=== PATIENT | female | born 1945 | race Caucasian/White ===

== ENCOUNTER 2018-03-30 08:04 | Outpatient (REF) | payer MEDICARE, BC, SELFPAY ==
[2018-03-30 13:10] LABS: HCT 40.6 % (36.0-46.0); HGB 13.4 g/dL (12.0-15.5); Mean Corpuscular Hemoglobin 29.8 pg (27.0-33.0); Mean Corpuscular Volume 90.2 fL (80-95); Mean Platelet Volume 13.2 fL (8.0-11.0); Platelet Count 192 x1000/uL (130-400); RBC Distribution Width 13.5 % (11.7-14.6); White Blood Cell Count 5.86 k/cumm (4.4-10.8)
[2018-03-30 13:36] LABS: ALT 39 U/L (12-78); AST 29 U/L (15-37); Albumin 3.7 g/dL (3.4-5.0); Alkaline Phosphatase 128 U/L (46-116); Anion Gap 8.7 mmol/L (3-11); BUN 20 mg/dL (7-18); Bilirubin, Total 0.6 mg/dL (0.2-1.0); CO2 28.3 mmol/L (21.0-32.0); CREATININE 0.98 mg/dL (0.55-1.02); Calcium 9.1 mg/dL (8.5-10.1); Chloride 105 mmol/L (98-107); Cholesterol 164 mg/dL (50-200); Estimated GFR 55.95 (mL/min/1.73m2); Glucose 102 mg/dL (70-100); HDL Cholesterol 65 mg/dL (40-60); LDL CHOLESTEROL 82 mg/dL (<100); Potassium 4.1 mmol/L (3.5-5.1); Sodium 142 mmol/L (136-145); Total Protein 6.7 g/dL (6.4-8.2); Triglyceride 83 mg/dL (30-150)
== END 2018-03-30 08:24 ==
LOC: NCHCN 08:04
PROVIDERS: Visit Provider Family Medicine
DX: I10 Essential (primary) hypertension (principal); E78.5 Hyperlipidemia, unspecified
CPT/HCPCS: 80053; 80061; 83721; 85027

== ENCOUNTER 2019-04-02 08:28 | Outpatient (REF) | payer MEDICARE, BC, SELFPAY ==
[2019-04-02 12:25] LABS: HCT 41.1 % (36.0-46.0); HGB 13.6 g/dL (12.0-15.5); Mean Corp. HGB Concentration 33.1 g/dL (32.0-36.0); Mean Corpuscular Hemoglobin 29.4 pg (27.0-33.0); Mean Corpuscular Volume 88.8 fL (80-95); Mean Platelet Volume 11.9 fL (8.0-11.0); Platelet Count 242 x1000/uL (130-400); RBC 4.63 m/cumm (4.00-5.20); RBC Distribution Width 13.1 % (11.7-14.6); White Blood Cell Count 9.91 k/cumm (4.4-10.8)
[2019-04-02 12:33] LABS: ALT 39 U/L (14-59); AST 26 U/L (15-37); Albumin 3.5 g/dL (3.4-5.0); Alkaline Phosphatase 136 U/L (46-116); Anion Gap 9.5 mmol/L (3-11); BUN 11 mg/dL (7-18); CO2 27.5 mmol/L (21.0-32.0); CREATININE 0.84 mg/dL (0.55-1.02); Calcium 8.8 mg/dL (8.5-10.1); Calculated LDL 73 mg/dL; Chloride 104 mmol/L (98-107); Cholesterol 151 mg/dL (50-200); Glucose 104 mg/dL (70-100); HDL Cholesterol 61 mg/dL (40-60); Potassium 3.9 mmol/L (3.5-5.1); Sodium 141 mmol/L (136-145); Total Protein 6.9 g/dL (6.4-8.2); Triglyceride 86 mg/dL (30-150)
== END 2019-04-02 08:48 ==
LOC: NCHCN 08:28
PROVIDERS: PCP Family Medicine; Visit Provider Family Medicine
DX: I10 Essential (primary) hypertension (principal); E78.5 Hyperlipidemia, unspecified; R73.02 Impaired glucose tolerance (oral); R31.29 Other microscopic hematuria; M85.80 Other specified disorders of bone density and structure, unspecified site; I25.10 Atherosclerotic heart disease of native coronary artery without angina pectoris
CPT/HCPCS: 80053; 80061; 85027

== ENCOUNTER 2019-10-25 13:39 | Outpatient (REF) | payer MEDICARE, BC, SELFPAY ==
[2019-10-26 17:43] LABS: COVID-19 RT-PCR Result NEGATIVE (Negative)
== END 2019-10-25 13:59 ==
LOC: NCHCN 13:39
PROVIDERS: PCP Family Medicine; Visit Provider Nurse Practitioner Family
DX: Z03.818 Encounter for observation for suspected exposure to other biological agents ruled out (principal)
CPT/HCPCS: U0003

== ENCOUNTER 2019-11-30 11:03 | Outpatient (CLI) | payer MEDICARE, BC, SELFPAY ==
[2019-11-30 22:37] LABS: COVID-19 RT-PCR UVMMC Result Negative (Negative)
== END 2019-11-30 11:23 ==
PROVIDERS: PCP Family Medicine; Visit Provider Family Medicine
DX: Z03.818 Encounter for observation for suspected exposure to other biological agents ruled out (principal)
CPT/HCPCS: U0003

== ENCOUNTER 2019-12-03 04:09 | Outpatient (CLI) | payer MEDICARE, BC, SELFPAY ==
--- NOTE | 2019-12-10 08:35 | W.PFT ---
Date of service: 12/03/19 Time of Service: 10:02 Pulmonary Function Test Result Interpretation Spirometry: Spirometry shows no evidence of obstructive airways disease, no bronchodilator response Lung Volumes: Lung volumes show no evidence of restriction Diffusion Capacity: Diffusion capacity is normal Airway Pressure: Airways resistance is normal Impression Normal pulmonary function study, clinical correlation recommended Clinical Correlation therefore is recommended.
== END 2019-12-03 04:29 ==
PROVIDERS: PCP Family Medicine; Visit Provider Nurse Practitioner Family
DX: F17.201 Nicotine dependence, unspecified, in remission; Z87.09 Personal history of other diseases of the respiratory system
CPT/HCPCS: 94060; 94726; 94729

== ENCOUNTER 2020-04-17 08:25 | Outpatient (REF) | payer MEDICARE, BC, SELFPAY ==
[2020-04-17 21:32] LABS: HCT 40.6 % (36.0-46.0); HGB 13.4 g/dL (11.2-15.7); MCH 29.2 pg (27.0-33.0); MCV 88.5 fL (80-95); MPV 12.9 fL (8.0-11.0); Platelet Count 195 10^3/uL (130-400); RBC 4.59 10^6/uL (3.93-5.22); RDW 13.2 % (11.7-14.6); RDW-SD 42.7 fL; WBC 5.37 10^3/uL (4.4-10.8)
[2020-04-17 22:00] LABS: ALT 36 U/L (14-59); AST 24 U/L (15-37); Albumin 3.7 g/dL (3.4-5.0); Alkaline Phosphatase 130 U/L (46-116); Anion Gap 8.9 mmol/L (3-11); BUN 16 mg/dL (7-18); Bilirubin, Total 0.6 mg/dL (0.2-1.0); CO2 28.1 mmol/L (21.0-32.0); CREATININE 0.85 mg/dL (0.55-1.02); Calcium 8.6 mg/dL (8.5-10.1); Calculated LDL 82 mg/dL (<100); Chloride 107 mmol/L (98-107); Cholesterol 165 mg/dL (<200); Glucose 96 mg/dL (74-106); HDL Cholesterol 66 mg/dL (40-60); Potassium 3.8 mmol/L (3.5-5.1); Sodium 144 mmol/L (136-145); Total Protein 6.5 g/dL (6.4-8.2); Triglyceride 87 mg/dL (<150)
== END 2020-04-17 08:45 ==
LOC: NCHCN 08:25
PROVIDERS: PCP Family Medicine; Visit Provider Family Medicine
DX: Z00.00 Encounter for general adult medical examination without abnormal findings (principal); E66.9 Obesity, unspecified; R73.03 Prediabetes; E78.5 Hyperlipidemia, unspecified; I10 Essential (primary) hypertension
CPT/HCPCS: 80053; 80061; 85027

== ENCOUNTER 2020-06-09 12:17 | Outpatient (REF) | payer MEDICARE, BC, SELFPAY ==
[2020-06-10 19:38] LABS: COVID-19 RT-PCR UVMMC Result Negative (Negative)
== END 2020-06-09 12:37 ==
LOC: NCHCN 12:17
PROVIDERS: PCP Family Medicine; Visit Provider Family Medicine
DX: Z20.828 Contact with and (suspected) exposure to other viral communicable diseases (principal)
CPT/HCPCS: U0003

== ENCOUNTER 2020-06-23 19:43 | Outpatient (REF) | payer MEDICARE, BC, SELFPAY ==
[2020-06-25 17:17] LABS: COVID-19 RT-PCR UVMMC Result Negative (Negative)
== END 2020-06-23 20:03 ==
LOC: NCHCN 19:43
PROVIDERS: PCP Family Medicine; Visit Provider Family Medicine
DX: Z11.52 Encounter for screening for COVID-19 (principal)
CPT/HCPCS: U0003

== ENCOUNTER 2020-09-01 17:02 | Outpatient (REF) | payer MEDICARE, BC, SELFPAY ==
[2020-09-02 11:32] LABS: COVID-19 RT-PCR UVMMC Result Negative (Negative)
== END 2020-09-01 17:03 | disposition home or self-care (01) ==
LOC: NCHCN 17:02
PROVIDERS: PCP Family Medicine; Visit Provider Family Medicine
DX: Z20.822 Contact with and (suspected) exposure to COVID-19 (principal)
CPT/HCPCS: U0003; U0005

== ENCOUNTER 2020-09-05 11:40 | Outpatient (REF) | payer MEDICARE, BC, SELFPAY ==
[2020-09-06 16:55] LABS: COVID-19 RT-PCR UVMMC Result Negative (Negative)
== END 2020-09-05 11:41 | disposition home or self-care (01) ==
LOC: NCHCN 11:40
PROVIDERS: PCP Family Medicine; Visit Provider Family Medicine
DX: Z20.822 Contact with and (suspected) exposure to COVID-19 (principal)
CPT/HCPCS: U0003; U0005

== ENCOUNTER 2021-04-23 09:46 | Outpatient (REF) | payer MEDICARE, BC, SELFPAY ==
[2021-04-23 17:05] LABS: Hemoglobin A1C 5.5 % (<5.7)
[2021-04-23 17:24] LABS: ALT 37 U/L (14-59); AST 25 U/L (15-37); Albumin 3.7 g/dL (3.4-5.0); Alkaline Phosphatase 130 U/L (46-116); Anion Gap 9.5 mmol/L (3-11); BUN 18 mg/dL (7-18); Bilirubin, Total 0.8 mg/dL (0.2-1.0); CO2 28.5 mmol/L (21.0-32.0); CREATININE 0.9 mg/dL (0.55-1.02); Calcium 8.8 mg/dL (8.5-10.1); Chloride 109 mmol/L (98-107); Glucose 97 mg/dL (74-106); Potassium 4.1 mmol/L (3.5-5.1); Sodium 147 mmol/L (136-145); Total Protein 6.6 g/dL (6.4-8.2)
[2021-04-23 17:54] LABS: Vitamin D 25 Total 38.7 ng/mL (30-100)
== END 2021-04-23 09:47 | disposition home or self-care (01) ==
LOC: NCHCN 09:46
PROVIDERS: PCP Family Medicine; Visit Provider Family Medicine
DX: R73.03 Prediabetes (principal); I10 Essential (primary) hypertension; E78.5 Hyperlipidemia, unspecified; M85.88 Other specified disorders of bone density and structure, other site; E66.9 Obesity, unspecified
CPT/HCPCS: 80053; 82306; 83036

== ENCOUNTER 2021-07-30 17:13 | Outpatient (REF) | payer MEDICARE, BC, SELFPAY ==
[2021-08-01 12:19] LABS: COVID-19 RT-PCR UVMMC Result Negative (Negative)
== END 2021-07-30 17:14 | disposition home or self-care (01) ==
LOC: NCHCN 17:13
PROVIDERS: PCP Family Medicine; Visit Provider Family Medicine
DX: Z20.822 Contact with and (suspected) exposure to COVID-19 (principal); R05.8 Other specified cough
CPT/HCPCS: U0003

== ENCOUNTER 2022-06-21 10:52 | Day surgery (SDC) | payer MEDICARE, BC, SELFPAY ==
--- NOTE | 2022-06-21 06:55 | W.ANESPRE ---
General Info Date of Service Date Performed: 06/21/22 Height: 5 ft 2 in Weight: 92.533 kg Body Mass Index (BMI): 37.3 Surgical Procedure: Operation Date: 06/21/22 12:55 Proposed Procedure Side Surgeon p Cataract Extraction with IOL Implant Right Justo Shields MD Meds Allergies and Home Medications Allergies Allergy/AdvReac Type Severity Reaction Status Date / Time penicillin V Allergy Severe swollen Verified 06/21/22 07:16 tongue Sulfa (Sulfonamide Allergy Severe swollen Unverified 06/21/22 07:16 Antibiotics) tongue tetracycline Allergy Severe swollen Verified 06/21/22 07:16 tongue aspirin Allergy Intermediate swollen Verified 06/21/22 07:16 tongue Home Medication Medication Instructions Recorded albuterol sulfate 90 mcg/actuation 2 puff inhalation Q4H PRN 03/03/22 aerosol inhaler (Proventil HFA) aspirin 81 mg tablet,delayed 81 mg PO DAILY 03/03/22 release (Adult Aspirin Regimen) atorvastatin 40 mg tablet 40 mg PO QHS 03/03/22 famotidine 40 mg tablet 40 mg PO HS 03/03/22 fluticasone propionate 110 2 puff inhalation BID 03/03/22 mcg/actuation HFA aerosol inhaler (Flovent HFA) [id number]-omxjsnebx-svs C-Mn 500 1 cap PO DAILY 03/03/22 mg-400 mg capsule lisinopril 20 1 tab PO DAILY 03/03/22 mg-hydrochlorothiazide 12.5 mg tablet mometasone 50 mcg/actuation nasal 1 spray intranasal DAILY 03/03/22 spray multivitamin 1 tab PO DAILY 03/03/22 pyridoxine (vitamin B6) 50 mg 50 mg PO DAILY 03/03/22 tablet ascorbic acid (vitamin C) 500 mg 500 mg PO DAILY 06/17/22 tablet (Vitamin C) calcium carbonate 600 mg-vitamin 1 cap PO DAILY 06/17/22 D3 12.5 mcg (500 unit) capsule (Calcium 600 with Vitamin D3) PFSH Active Problems Active Problems: Problem Status Onset Code Cortical cataract of right eye H26.9 Nuclear sclerotic cataract of right eye H25.11 Yeast infection B37.9 Cataracts, bilateral H26.9 Prediabetes R73.03 Hypertensive disorder I10 Hyperlipidemia E78.5 GERD (gastroesophageal reflux disease) K21.9 Obesity E66.9 Cough R05.9 Osteoporosis M81.0 Adenomatous colon polyp D12.6 Knee pain M25.569 Environmental allergies Z91.09 Hematuria R31.9 Vitamin D deficiency E55.9 Medical History Medical History (Updated 06/21/22 @ 11:12 by Nan Gutierrez) Cataract GERD (gastroesophageal reflux disease) History of ASCVD Hx of smoking Hypertension Kidney calculi Surgical History Surgical History (Updated 06/21/22 @ 11:11 by Nan Gutierrez) History of cholecystectomy Tobacco Smoking/Tobacco Use Status: Former Tobacco Use Alcohol Alcohol Intake: never Substance Use Substance use: Never Substance use type: does not use Vital Signs and Lab Results Vital Signs Most Recent Vital Signs in EMR: Temp Pulse Resp BP Pulse Ox 36.5 C 81 18 165/73 H 96 06/21/22 11:02 06/21/22 11:02 06/21/22 11:02 06/21/22 11:02 06/21/22 11:02 Lab Results Blood Type / Crossmatch: No Data to Display Complete Blood Count: No Data to Display Complete Metabolic Panel: No Data to Display Liver Function Panel: No Data to Display Coagulation Panel: No Data to Display Cardiac Panel: No Data to Display Arterial Blood Gas: No Data to Display Venous Blood Gas: No Data to Display Pancreas Panel: No Data to Display Thyroid Panel: No Data to Display Infectious Disease: No Data to Display Blood Cultures: No Data to Display Toxicology Panel: No Data to Display Imaging and Studies Imaging and Studies Study information below may be from another EMR and interpreted by another provider. Please see original notes in EMR for more complete details. Pulmonary Function Summary: 12/23: normal study. Anesthesia Assessment and Plan Anesthesia History Personal History: No History of Anesthesia Complications Family History: No Family History of Anesthesia Complications Exercise Tolerance Exercise Tolerance: Metabolic Equivalents>4 Cardiac & Pulmonary Exam Cardiac Exam: Normal S1/S2 Heart Sounds Pulmonary Exam: Clear Bilateral Breath Sounds Implantable Cardiac Device Does patient have a Pacemaker or an ICD?: No Airway Exam Known Difficult Airway: No Mallampati Class: 2 Mouth Opening: Normal (> 3cm) Thyromental Distance: Greater than 3 cm Neck Range of Motion: Limited ROM Neck Circumference: Normal Teeth Condition: Normal Dentition and Removable Dentures/Plates Upper ASA Classification ASA Score: ASA 2 Emergency Case?: No NPO Status NPO Status: NPO Clears >2 hours, Solids >8 hours Anesthesia Plan Resuscitation Status: Full Code Anesthesia Technique: MAC Anesthesia Airway Planned: Natural Airway Monitors Used: Standard Monitors Preoperative Comments:: 76 yo female for cataract removal. Sig PMHx: GERD (famotidine, well controlled), HTN (lisinopril, hctz), preDM (A1c 5.5 2020), ASCVD, former smoker, COPD (albuterol, flovent, mometasone),
[2022-06-21 11:02] VITALS: BP 165/73; PULSE 81; RESP 18; TEMP 36.5; O2SAT 96
[2022-06-21] MEDS: Tropicam./Phenyleph. (1/2.5%) 5 ML BTL OD ×3 (11:14→11:26)
[2022-06-21 11:28] VITALS: BMI 37.3
[2022-06-21] MEDS: Tetracaine 0.5% 4 ML BTL OD (12:38)
[2022-06-21] MEDS: Povidone-Iodine Ophth 30 ML BTL (12:39)
[2022-06-21] MEDS: Lidocaine 2% Jelly 6 ML SYR (12:39)
[2022-06-21] MEDS: Balanced Salt Soln.-PLUS 500 ML BAG (12:46)
[2022-06-21] MEDS: Duovisc Viscoelastic System EACH 1 EACH (12:46)
[2022-06-21] MEDS: Lidocaine 1% Pres-Free 5 ML VIAL (12:48)
[2022-06-21 13:08] VITALS: BP 142/72; PULSE 81; RESP 18; TEMP 36.2; O2SAT 96
--- NOTE | 2022-06-21 13:08 | W.PM.DSUDISC ---
Date of service: 06/21/22 Time of Service: 13:08 Discharge Plan Disposition Patient Disposition: Home Discharge Details Attending Provider: Justo Shields Primary Care Provider: Haley Augustine Home Meds and New Rx's Prescriptions: No Action fluticasone propionate [Flovent HFA] 110 mcg/actuation HFA aerosol inhaler 2 puff inhalation BID multivitamin Tablet 1 tab PO DAILY pgzjtdqkvic-xueatzifo-irl C-Mn 500-400 mg capsule 1 cap PO DAILY aspirin [Adult Aspirin Regimen] 81 mg tablet,delayed release (DR/EC) 81 mg PO DAILY pyridoxine (vitamin B6) 50 mg tablet 50 mg PO DAILY albuterol sulfate [Proventil HFA] 90 mcg/actuation HFA aerosol inhaler 2 puff inhalation Q4H PRN mometasone 50 mcg/actuation spray,non-aerosol 1 spray intranasal DAILY Rx Instructions: administer into each nostril atorvastatin 40 mg tablet 40 mg PO QHS famotidine 40 mg tablet 40 mg PO HS lisinopril-hydrochlorothiazide 20-12.5 mg tablet 1 tab PO DAILY ascorbic acid (vitamin C) [Vitamin C] 500 mg Tablet 500 mg PO DAILY calcium carbonate-vitamin D3 [Calcium 600 with Vitamin D3] 600 mg-12.5 mcg (500 unit) Capsule 1 cap PO DAILY Discharge Instructions Stand Alone Forms: Post-op Topical Cataract, Radha Reaves (DSU) Discharge Orders Discharge Orders: Discharge Order (Routine); Ordered 06/21/22 Ordered By: Justo Shields DS: Diagnosis Discharge Diagnosis (1) Nuclear sclerotic cataract of right eye: Status: Resolved (2) Cortical cataract of right eye: Status: Resolved
--- NOTE | 2022-06-21 13:10 | W.PM.OP ---
Date of service: 06/21/22 Time of Service: 13:10 Operative Note Operative Note DATE OF PROCEDURE: 06/21/22 PRE-OP DIAGNOSIS: Nuclear/cortical cataract, right eye POST-OP DIAGNOSIS: same PROCEDURE: Cataract extraction using phacoemulsification with intraocular lens implant, right eye SURGEON: Justo Shields ANESTHESIA TYPE: Local By Surgeon and MAC Refer to Anesthesia Record ESTIMATED BLOOD LOSS: 0 PATHOLOGY: none sent COMPLICATIONS: None Patient was transported to: same day Patient's condition: stable Implants: Rei & Rei/MOMO Tecnis [id number] Indications: Progressive visual loss due to cataract, right eye Procedure Description: CATARACT SURGERY OPERATIVE REPORT PREOPERATIVE DIAGNOSIS: 1. Nuclear/cortical cataract, right eye POSTOPERATIVE DIAGNOSIS: Same OPERATION: 1. Cataract extraction using phacoemulsification with posterior chamber intraocular lens implant, right eye. IOL: IOL [employer] Net Or Trap/Model: Rei & Rei / MOMO Tecnis [id number] IOL Power: + 22.0 diopters IOL Serial Number: [id number] Optic Diameter: 6.0mm Haptic/Overall Diameter: 13.0mm PHACO INFO: Piyush [employer]urion Vision System with OZil and Active Fluidics Cumulative Dispersed Energy (CDE): 12.03 seconds SURGEON: Justo Shields MD, MANNY ANESTHESIA: Monitored Anesthesia Care (MAC), with local sub-tenon's anesthetic infiltration COMPLICATIONS: None SPECIMENS: None INDICATIONS FOR PROCEDURE: The patient is a 76-year-old lady with history of diminished visual acuity in her right eye secondary to the development of nuclear/cortical cataract. The option of cataract surgery was offered to the patient and she felt she was symptomatic enough that she wished to proceed. PROCEDURE: The correct surgical eye was identified and marked as the right eye and the pupil was dilated in the preoperative area using mydriatics and cycloplegics. The dilated pupil size was 7.0 mm. . The patient elected to proceed without oral sedation. The patient was brought to the operating room where cardiopulmonary monitoring was instituted and surgical time-out was performed, confirming the correct operative eye and IOL power. Topical anesthesia was administered and ophthalmic povidone-iodine 5% was instilled into the conjunctival fornices. Lidocaine gel was applied to the cornea and the adilson-ocular area was prepped with Betadine 10% solution and draped in the usual sterile fashion for intraocular surgery, including an aperture drape. A Tegaderm transparent film dressing was cut in half and used to cover the lashes and lid margins. Care was taken to sequester the lashes and lid margins under the Tegaderm dressing. A lid speculum was placed between the lids of the operative eye and the Piyush Lux[employer] Revalia operating microscope was maneuvered into position. Vani scissors were then used to make a conjunctival buttonhole approximately 6mm posterior to the limbus in the inferonasal quadrant. Blunt dissection was carried out to expose bare sclera, and a blunt-tipped sub-tenon?s anesthesia cannula was introduced and passed posteriorly along the globe where non-preserved plain lidocaine was injected into posterior sub-Tenon?s space. A sideport knife was used to make a paracentesis port inferotemporally. Intraocular phenylephrine/lidocaine was injected into the anterior chamber. The anterior chamber was filled with viscoelastic. A keratome knife was used to construct a 2-plane near-clear corneal tunnel extending 2.0mm into clear cornea superiortemporally. A flap was raised on the anterior capsule and capsulorhexis forceps were used to complete a continuous curvilinear capsulorhexis of 5.0 mm. Balanced salt solution was then used to perform cortical cleaving hydrodissection and nuclear hydrodelineation until the lens could be freely rotated within the capsular bag. The lens nucleus was then disassembled and removed within the capsular bag and iris plane using phacoemulsification. Residual cortical material was removed using the I/A handpiece. The posterior capsule was carefully polished to remove as much residual lens epithelial cells as safely possible. The capsular bag was then inflated and the anterior chamber deepened with viscoelastic. The lens implant described above was inserted into the capsular bag using the MOMO [place] Injector. A Kuglen hook was used to dial the IOL into position. Residual viscoelastic was then removed first from posterior to the IOL, then from the anterior chamber using the I/A handpiece. The lens implant was noted to center nicely within the capsular bag. The incisions were stromally hydrated, and the anterior chamber was reformed using BSS. Then 0.5cc of moxifloxacin 1.0mg/ml were injected into the capsular bag and anterior chamber. The incisions were checked with a Weck spear and found to be secure. Several drops of ophthalmic povidone-iodine 5% were then applied to the eye followed by two drops of Imprimis combination prednisolone/moxifloxacin/nepafenac solution. The drapes were removed and a clear plastic protective eye shield was placed over the eye. The patient was then returned to [facility] Day Surgery in stable condition.
--- NOTE | 2022-06-21 16:30 | W.ANESPOSTOP ---
Postoperative Evaluation Date, Time and Location Date Performed: 06/21/22 Time Performed: 13:10 Patient Location: Day Surgery Unit Vital Signs Most Recent Imported Vital Signs: Most Recent Vital Signs Temp Pulse Resp BP Pulse Ox 36.2 C L 81 18 142/72 H 96 06/21/22 13:08 06/21/22 13:08 06/21/22 13:08 06/21/22 13:08 06/21/22 13:08 Assessment Mental Status: Awake (Alert & Oriented to Patient Baseline) Airway and Respiratory Function: Patent airway with normal (patient baseline) respiratory exam Cardiovascular Function: Hemodynamically Stable Hydration Status: Adequately Hydrated Nausea & Vomiting: No Nausea or Vomiting Pain: Pt. Denies Any Pain Peripheral Nerve Block: Patient did not receive a nerve block
== END 2022-06-21 13:38 | disposition home or self-care (01) ==
LOC: SUR 10:52
PROVIDERS: PCP Family Medicine; Visit Provider Ophthalmology
PROC: (CPT 66984; principal; 2022-06-21 12:45)
DX: H25.11 Age-related nuclear cataract, right eye (principal)
CPT/HCPCS: 66984; V2632

== ENCOUNTER 2022-06-29 12:53 | Outpatient (REF) | payer MEDICARE, BC, SELFPAY ==
[2022-06-29 15:20] LABS: Vitamin D 25 Total 43.3 ng/mL (30-100)
[2022-06-29 15:28] LABS: ALT 33 U/L (14-59); AST 27 U/L (15-37); Albumin 3.8 g/dL (3.4-5.0); Alkaline Phosphatase 141 U/L (46-116); Anion Gap 5.4 mmol/L (3-11); BUN 23 mg/dL (7-18); Bilirubin, Total 0.7 mg/dL (0.2-1.0); CO2 30.6 mmol/L (21.0-32.0); CREATININE 1.1 mg/dL (0.55-1.02); Calcium 9.4 mg/dL (8.5-10.1); Calculated LDL 91 mg/dL (<100); Chloride 105 mmol/L (98-107); Cholesterol 175 mg/dL (<200); Glucose 97 mg/dL (74-106); HDL Cholesterol 70 mg/dL (40-60); Potassium 4.5 mmol/L (3.5-5.1); Sodium 141 mmol/L (136-145); Total Protein 7.3 g/dL (6.4-8.2); Triglyceride 72 mg/dL (<150)
== END 2022-06-29 12:54 | disposition home or self-care (01) ==
LOC: NCHCN 12:53
PROVIDERS: PCP Family Medicine; Visit Provider Family Medicine
DX: Z00.00 Encounter for general adult medical examination without abnormal findings (principal); I10 Essential (primary) hypertension; M81.0 Age-related osteoporosis without current pathological fracture; E78.5 Hyperlipidemia, unspecified; R73.03 Prediabetes; E55.9 Vitamin D deficiency, unspecified
CPT/HCPCS: 80053; 80061; 82306

== ENCOUNTER 2022-07-05 09:33 | Day surgery (SDC) | payer MEDICARE, BC, SELFPAY ==
[2022-07-05 09:40] VITALS: BP 146/82; PULSE 87; RESP 18; TEMP 37; O2SAT 95
--- NOTE | 2022-07-05 09:45 | ANES.PREOP_ITS ---
General Info Date of Service Date Performed: 07/05/22 Height: 5 ft 2 in Weight: 96 kg Body Mass Index (BMI): 38.7 Surgical Procedure: Operation Date: 07/05/22 11:40 Proposed Procedure Side Surgeon p Cataract Extraction with IOL Implant Left Justo Shields MD Meds Allergies and Home Medications Allergies Allergy/AdvReac Type Severity Reaction Status Date / Time penicillin V Allergy Severe swollen Verified 07/05/22 09:44 tongue Sulfa (Sulfonamide Allergy Severe swollen Unverified 07/05/22 09:44 Antibiotics) tongue tetracycline Allergy Severe swollen Verified 07/05/22 09:44 tongue aspirin Allergy Intermediate swollen Verified 07/05/22 09:44 tongue Home Medication Medication Instructions Recorded albuterol sulfate 90 mcg/actuation 2 puff inhalation Q4H PRN 03/03/22 aerosol inhaler (Proventil HFA) aspirin 81 mg tablet,delayed 81 mg PO DAILY 03/03/22 release (Adult Aspirin Regimen) atorvastatin 40 mg tablet 40 mg PO QHS 03/03/22 famotidine 40 mg tablet 40 mg PO HS 03/03/22 fluticasone propionate 110 2 puff inhalation BID 03/03/22 mcg/actuation HFA aerosol inhaler (Flovent HFA) sqreozveejv-utgnoqxqj-rgk C-Mn 500 1 cap PO DAILY 03/03/22 mg-400 mg capsule lisinopril 20 1 tab PO DAILY 03/03/22 mg-hydrochlorothiazide 12.5 mg tablet mometasone 50 mcg/actuation nasal 1 spray intranasal DAILY 03/03/22 spray multivitamin 1 tab PO DAILY 03/03/22 pyridoxine (vitamin B6) 50 mg 50 mg PO DAILY 03/03/22 tablet ascorbic acid (vitamin C) 500 mg 500 mg PO DAILY 06/17/22 tablet (Vitamin C) calcium carbonate 600 mg-vitamin 1 cap PO DAILY 06/17/22 D3 12.5 mcg (500 unit) capsule (Calcium 600 with Vitamin D3) Current Visit Medications: Current Medications Generic Name Dose Route Start Last Admin Trade Name Freq PRN Reason Stop Dose Admin Acetaminophen 1,000 mg 07/05/22 06:00 Acetaminophen 500 Mg Tab PO Q4H PRN PRN Miscellaneous Medication 0 ml 07/05/22 06:00 Prednisolone 1%, Moxifloxacin 0.5%, Nepafenac 0.1% 5ml Btl OS DIRECTED GARCIA Miscellaneous Medication 0 ml 07/05/22 06:00 Tropicam./Phenyleph. (1/2.5%) 5 Ml Btl OS DIRECTED GARCIA Tetracaine HCl 0 ml 07/05/22 06:00 Tetracaine 0.5% 4 Ml Btl OS DIRECTED [facility] PFSH Active Problems Active Problems: Problem Status Onset Code Yeast infection B37.9 Cataracts, bilateral H26.9 Prediabetes R73.03 Hypertensive disorder I10 Hyperlipidemia E78.5 GERD (gastroesophageal reflux disease) K21.9 Obesity E66.9 Cough R05.9 Osteoporosis M81.0 Adenomatous colon polyp D12.6 Knee pain M25.569 Environmental allergies Z91.09 Hematuria R31.9 Vitamin D deficiency E55.9 Nuclear sclerotic cataract of right eye H25.11 Cortical cataract of right eye H26.9 Medical History Medical History Cataract GERD (gastroesophageal reflux disease) History of ASCVD Hx of smoking Hypertension Kidney calculi Surgical History Surgical History (Updated 07/05/22 @ 09:21 by Nan Gutierrez) History of cataract surgery History of cholecystectomy Tobacco Smoking/Tobacco Use Status: Former Tobacco Use Alcohol Alcohol Intake: never Substance Use Substance use: Never Substance use type: does not use Vital Signs and Lab Results Lab Results Blood Type / Crossmatch: No Data to Display Complete Blood Count: No Data to Display Complete Metabolic Panel: Sodium 141 mmol/L (136-145) 06/29/22 08:20 Potassium 4.5 mmol/L (3.5-5.1) 06/29/22 08:20 Chloride 105 mmol/L (98-107) 06/29/22 08:20 Carbon Dioxide 30.6 mmol/L (21.0-32.0) 06/29/22 08:20 BUN 23 mg/dL (7-18) H 06/29/22 08:20 Creatinine 1.1 mg/dL (0.55-1.02) H 06/29/22 08:20 Est GFR (CKD-EPI 2020) 52.40 (mL/min/1.73m2) 06/29/22 08:20 Calcium 9.4 mg/dL (8.5-10.1) 06/29/22 08:20 Albumin 3.8 g/dL (3.4-5.0) 06/29/22 08:20 Glucose 97 mg/dL (74-106) 06/29/22 08:20 Liver Function Panel: Alanine Aminotransferase (ALT/SGPT) 33 U/L (14-59) 06/29/22 08: 20 Aspartate Amino Transf (AST/SGOT) 27 U/L (15-37) 06/29/22 08:20 Coagulation Panel: No Data to Display Cardiac Panel: No Data to Display Arterial Blood Gas: No Data to Display Venous Blood Gas: No Data to Display Pancreas Panel: No Data to Display Thyroid Panel: No Data to Display Infectious Disease: No Data to Display Blood Cultures: No Data to Display Toxicology Panel: No Data to Display Imaging and Studies Imaging and Studies Study information below may be from another EMR and interpreted by another provider. Please see original notes in EMR for more complete details. Pulmonary Function Summary: 12/23: normal study. Anesthesia Assessment and Plan Anesthesia History Personal History: No History of Anesthesia Complications Family History: No Family History of Anesthesia Complications Exercise Tolerance Exercise Tolerance: Metabolic Equivalents>4 Pertinent Negatives Pertinent Negatives: No Symptoms of GERD, No Major Cardiovascular Symptoms or Co mplaints and No History of CVA/TIA Cardiac & Pulmonary Exam Cardiac Exam: Normal S1/S2 Heart Sounds Pulmonary Exam: Clear Bilateral Breath Sounds Implantable Cardiac Device Does patient have a Pacemaker or an ICD?: No Airway Exam Known Difficult Airway: No Mallampati Class: 2 Mouth Opening: Normal (> 3cm) Thyromental Distance: Greater than 3 cm Neck Range of Motion: Limited ROM Neck Circumference: Normal Teeth Condition: Normal Dentition and Removable Dentures/Plates Upper ASA Classification ASA Score: ASA 2 Emergency Case?: No NPO Status NPO Status: NPO Clears >2 hours, Solids >8 hours Anesthesia Plan Resuscitation Status: Full Code Anesthesia Technique: MAC Anesthesia Airway Planned: Natural Airway Monitors Used: Standard Monitors Preoperative Comments:: 76 yo female for cataract removal. Sig PMHx: GERD (famotidine, well controlled), HTN (lisinopril, hctz), preDM (A1c 5.5 2020), ASCVD, former smoker, COPD (albuterol, flovent, mometasone),
[2022-07-05] MEDS: Tropicam./Phenyleph. (1/2.5%) 5 ML BTL OS ×3 (09:53→10:05)
[2022-07-05 10:26] VITALS: BMI 38.7
[2022-07-05] MEDS: Tetracaine 0.5% 4 ML BTL OS (11:31)
[2022-07-05] MEDS: Balanced Salt Soln.-PLUS 500 ML BAG (11:31)
[2022-07-05] MEDS: Lidocaine 1% Pres-Free 5 ML VIAL (11:32)
[2022-07-05] MEDS: Povidone-Iodine Ophth 30 ML BTL (11:32)
[2022-07-05] MEDS: Duovisc Viscoelastic System EACH 1 EACH (11:32)
[2022-07-05] MEDS: Lidocaine 2% Jelly 6 ML SYR (11:34)
[2022-07-05 11:35] VITALS: BP 139/77; PULSE 80; RESP 16; TEMP 36.6; O2SAT 96
--- NOTE | 2022-07-05 11:37 | W.PM.DSUDISC ---
Date of service: 07/05/22 Time of Service: 11:37 Discharge Plan Disposition Patient Disposition: Home Discharge Details Attending Provider: Justo Shields Primary Care Provider: Haley Augustine Home Meds and New Rx's Prescriptions: No Action fluticasone propionate [Flovent HFA] 110 mcg/actuation HFA aerosol inhaler 2 puff inhalation BID multivitamin Tablet 1 tab PO DAILY zumytbqfxdn-ykvlbvkwr-uwv C-Mn 500-400 mg capsule 1 cap PO DAILY aspirin [Adult Aspirin Regimen] 81 mg tablet,delayed release (DR/EC) 81 mg PO DAILY pyridoxine (vitamin B6) 50 mg tablet 50 mg PO DAILY albuterol sulfate [Proventil HFA] 90 mcg/actuation HFA aerosol inhaler 2 puff inhalation Q4H PRN mometasone 50 mcg/actuation spray,non-aerosol 1 spray intranasal DAILY Rx Instructions: administer into each nostril atorvastatin 40 mg tablet 40 mg PO QHS famotidine 40 mg tablet 40 mg PO HS lisinopril-hydrochlorothiazide 20-12.5 mg tablet 1 tab PO DAILY ascorbic acid (vitamin C) [Vitamin C] 500 mg Tablet 500 mg PO DAILY calcium carbonate-vitamin D3 [Calcium 600 with Vitamin D3] 600 mg-12.5 mcg (500 unit) Capsule 1 cap PO DAILY Discharge Instructions Stand Alone Forms: Post-op Topical Cataract, Radha Reaves (DSU) Discharge Orders Discharge Orders: Discharge Order (Routine); Ordered 07/05/22 Ordered By: Justo Shields DS: Diagnosis Discharge Diagnosis (1) Nuclear sclerotic cataract of left eye: Status: Resolved (2) Cortical cataract of left eye: Status: Resolved
--- NOTE | 2022-07-05 11:38 | ROE_ITS ---
Date of service: 07/05/22 Time of Service: 11:38 Operative Note Operative Note DATE OF PROCEDURE: 07/05/22 PRE-OP DIAGNOSIS: Nuclear/cortical cataract, left eye POST-OP DIAGNOSIS: same PROCEDURE: Cataract extraction using phacoemulsification with intraocular lens implant, left eye SURGEON: Justo Shields ANESTHESIA TYPE: Local By Surgeon and MAC Refer to Anesthesia Record PATHOLOGY: none sent COMPLICATIONS: None Patient was transported to: same day Patient's condition: stable Implants: Rei and Rei Tecnis Eyhance [id number] Indications: Progressive decreased vision due to cataract, left eye Procedure Description: CATARACT SURGERY OPERATIVE REPORT PREOPERATIVE DIAGNOSIS: 1. Nuclear/cortical cataract, left eye POSTOPERATIVE DIAGNOSIS: Same OPERATION: 1. Cataract extraction using phacoemulsification with posterior chamber intraocular lens implant, left eye. IOL: IOL Steam Fitter Supervisor Maintenance/Model: Rei & Rei Tecnis Eyhance DIB00 IOL Power: + 22.5 diopters IOL Serial Number: [id number] Optic Diameter: 6.0 mm Haptic/Overall Diameter: 13.0 mm PHACO INFO: PiyushModlar Vision System with OZil and Active Fluidics Cumulative Dispersed Energy (CDE): 9.12 seconds SURGEON: Justo Shields MD, MANNY ANESTHESIA: Monitored A [facility] (MAC), with local sub-tenon's anesthetic infiltration COMPLICATIONS: None SPECIMENS: None INDICATIONS FOR PROCEDURE: The patient is a 76-year-old lady with history of diminished visual acuity in both eyes secondary to the development of bilateral nuclear/cortical cataract. She has already undergone cataract surgery in the right eye and is doing well postoperatively. She now presents for cataract surgery in the left eye. PROCEDURE: The correct surgical eye was identified and marked as the left eye and the pupil was dilated in the preoperative area using mydriatics and cycloplegics. The dilated pupil size was 7.0 mm. The patient elected to proceed without oral sedation. The patient was brought to the operating room where cardiopulmonary monitoring was instituted and surgical time-out was performed, confirming the correct operative eye and IOL power. Topical anesthesia was administered and ophthalmic povidone-iodine 5% was insti lled into the conjunctival fornices. Lidocaine gel was applied to the cornea and the adilson-ocular area was prepped with Betadine 10% solution and draped in the usual sterile fashion for intraocular surgery, including an aperture drape. A Tegaderm transparent film dressing was cut in half and used to cover the lashes and lid margins. Care was taken to sequester the lashes and lid margins under the Tegaderm dressing. A lid speculum was placed between the lids of the operative eye and the Piyush LuxOR Revalia operating microscope was maneuvered into position. Vani scissors were then used to make a conjunctival buttonhole approximately 6mm posterior to the limbus in the inferonasal quadrant. Blunt dissection was carried out to expose bare sclera, and a blunt-tipped sub-tenon?s anesthesia cannula was introduced and passed posteriorly along the globe where non- preserved plain lidocaine was injected into posterior sub-Tenon?s space. A sideport knife was used to make a paracentesis port superiorly/superiortemporally. Intraocular phenylephrine/lidocaine was injected int the anterior chamber.. The anterior chamber was filled with viscoelastic. A keratome knife was used to construct a 2-plane near-clear corneal tunnel extending 2.0mm into clear cornea temporally. A flap was raised on the anterior capsule and capsulorhexis forceps were used to complete a continuous curvilinear capsulorhexis of 5.0 mm. Balanced salt solution was then used to perform cortical cleaving hydrodissection and nuclear hydrodelineation until the lens could be freely rotated within the capsular bag. The lens nucleus was then disassembled and removed within the capsular bag and iris plane using phacoemulsification. Residual cortical material was removed using the 45-degree angled silicone I/A t ip with 0.3mm port. The posterior capsule was carefully polished to remove as much residual lens epithelial cells as safely possible. The capsular bag was then inflated and the anterior chamber deepened with viscoelastic. The lens implant described above was inserted into the capsular bag using the Rei and Rei Simplicity pre-loaded injector. . A Kuglen hook was used to dial the IOL into position. Residual viscoelastic was then removed first from posterior to the IOL, then from the anterior chamber using the I/A handpiece. The lens implant was noted to center nicely within the capsular bag. The incisions were stromally hydrated, and the anterior chamber was reformed using BSS. Then 0.5cc of moxifloxacin 1.0mg/ml were injected into the capsular bag and anterior chamber. The in cisions were checked with a Weck spear and found to be secure. Several drops of ophthalmic povidone-iodine 5% were then applied to the eye followed by two drops of Imprimis combination prednisolone/moxifloxacin/nepafenac solution. The drapes were removed and a clear plastic protective eye shield was placed over the eye. The patient was then returned to Same Day Surgery in stable condition.
--- NOTE | 2022-07-05 13:31 | W.ANESPOSTOP ---
Postoperative Evaluation Date, Time and Location Date Performed: 07/05/22 Time Performed: 11:35 Patient Location: Day Surgery Unit Vital Signs Most Recent Imported Vital Signs: Most Recent Vital Signs Temp Pulse Resp BP Pulse Ox 36.6 C 80 16 139/77 96 07/05/22 11:35 07/05/22 11:35 07/05/22 11:35 07/05/22 11:35 07/05/22 11:35 Pain Score Most Recent Pain Score: Most Recent Pain Score Pain Level 0 07/05/22 11:35 Assessment Mental Status: Awake (Alert & Oriented to Patient Baseline) Airway and Respiratory Function: Patent airway with normal (patient baseline) respiratory exam Cardiovascular Function: Hemodynamically Stable Hydration Status: Adequately Hydrated Nausea & Vomiting: No Nausea or Vomiting Pain: Pt. Denies Any Pain Peripheral Nerve Block: Other (Local by Dr. Shields)
== END 2022-07-05 11:50 | disposition home or self-care (01) ==
LOC: SUR 09:34
PROVIDERS: PCP Family Medicine; Visit Provider Ophthalmology
PROC: (CPT 66984; principal; 2022-07-05 11:30)
DX: H25.12 Age-related nuclear cataract, left eye (principal)
CPT/HCPCS: 66984; V2632

== ENCOUNTER 2022-09-03 03:19 | Outpatient (CLI) | payer MEDICARE, BC, SELFPAY ==
[2022-09-03] MEDS: Inhaler, Assist Device 1 EACH MC (12:00)
[2022-09-03] MEDS: Albuterol HFA 18 GM 200 PUFF INH IH (12:00)
[2022-09-03] MEDS: Methacholine 100 MG VIAL IH (12:00)
--- NOTE | 2022-09-03 15:54 | W.PFT ---
Date of service: 09/03/22 Time of Service: 10:06 Pulmonary Function Test Result Indications: Cough Interpretation Spirometry: There is no baseline airflow limitation. There was a 19% decrease in FEV1% with administration of 16mg/mL methacholine. Impression Negative methacholine challenge test. Clinical Correlation therefore is recommended.
== END 2022-09-03 03:20 | disposition home or self-care (01) ==
LOC: RT 03:20
PROVIDERS: PCP Family Medicine; Visit Provider Physician Assistant Surgical
DX: R05.9 Cough, unspecified (principal)
CPT/HCPCS: 94060; 94070; J7674

== ENCOUNTER 2022-10-26 18:50 | Outpatient (REF) | payer MEDICARE, BC, SELFPAY | END 2022-10-26 18:51 | disposition home or self-care (01) | LOC: LBN 18:50 | PROVIDERS: PCP Family Medicine; Visit Provider Student in an Organized Health Care Education/Training Program | DX: R05.3 Chronic cough (principal) | CPT/HCPCS: 87070; 87205 ==

== ENCOUNTER 2022-11-17 02:26 | Outpatient (CLI) | payer MEDICARE, BC, SELFPAY ==
--- NOTE | 2022-11-17 07:45 | DI.CT_ITS ---
Exam(s) CT CHEST HIGH RESOLUTION EXAM: CT CHEST HIGH RESOLUTION CLINICAL HISTORY: concern for bronchiectasis, productive cough,r05.9. TECHNIQUE: Multi planar reconstructions were performed. CONTRAST MATERIAL: None COMPARISON: No exams were available for comparison FINDINGS: CHEST: LUNGS: There are no infiltrates nor pleural effusions. No ominous pulmonary nodules. No bullae. No evidence of interstitial fibrotic disease. No significant findings in trachea and mainstem bronchi. No obvious bronchiectasis. MEDIASTINUM: There is no obvious hilar nor mediastinal adenopathy. Visualized thyroid unremarkable.No obvious axillary adenopathy CARDIAC: Heart size is normal. There is no pericardial effusion.Caliber of the thoracic aorta is wit hin normal limits. VISUALIZED UPPER ABDOMEN:No adrenal masses. Gallbladder surgically absent. OSSEOUS: No significant osseous lesions.. IMPRESSION: 1. No acute pulmonary findings. No confluent infiltrates nor pleural effusions. No concerning pulmo nary nodules. No obvious intrathoracic adenopathy. 2. No evidence of obvious interstitial lung disease. No bullae. No obvious bronchiectasis. RADIATION DOSE DELIVERED: 721.9mGy.cm Total DLP DATA REPOSITORY: All CT scans at this facility are submitted to the National Radiology Data Registry (NRDR) Dose Index Registry (DIR) with the [employer] (ACR). RADIATION OPTIMIZATION: All CT scans at this facility use at least one of these dose optimization te chniques: automated exposure control; mA and/or kV adjustment per patient size (includes targeted exa ms where dose is matched to clinical indication); or iterative reconstruction.
== END 2022-11-17 02:46 ==
LOC: DI 02:26
PROVIDERS: PCP Family Medicine; Visit Provider Student in an Organized Health Care Education/Training Program
DX: R05.9 Cough, unspecified (principal)
CPT/HCPCS: 71250

== ENCOUNTER → 2023-01-18 00:56 | Outpatient (CLI) | payer MEDICARE, BC, SELFPAY ==
--- NOTE | 2023-01-18 07:30 | DI.US_ITS ---
APPROVED REPORT EXAM: Comprehensive 2D, Doppler, and color-flow Echocardiogram Patient Location: Out-Patient Motor Vehicle Light Assembler: Sita Talbert RDCS (AE) Indications: Systolic murmur on exam Other Information Study Quality: Fair Conclusion Normal left ventricular wall thickness and chamber size. Ejection fraction is 60 to 65%. Wall motio n is normal Normal right ventricular size and systolic function Left atrium is mildly dilated. Right atrial size is normal Aortic valve is sclerotic and trileaflet without stenosis or regurgitation Mitral annular calcification. Trace to mild mitral regurgitation Normal tricuspid valve with trace regurgitation. Right ventricular systolic pressure could not be es timated Dilated ascending aorta measuring 3.6 cm Wall motion Left Ventricle The left ventricle is normal size. The left ventricular systolic function is normal. The left ventric ular ejection fraction is within the normal range. There is normal left ventricular wall thickness. T here is normal LV segmental wall motion. There is no ventricular septal defect visualized. LVEF is 60 -65%. Right Ventricle The right ventricle is normal size. The right ventricular systolic function is normal. Atria Left atrium is mildly dilated. The right atrium size is normal. The interatrial septum is intact with no evidence for an atrial septal defect. Aortic Valve The aortic valve is sclerotic Aortic valve is trileaflet. There is no aortic valvular stenosis. No ao rtic regurgitation is present. Mitral Valve There is mitral annular calcification. No evidence of mitral valve stenosis. Trace to mild mitral reg urgitation. Tricuspid Valve The tricuspid valve is normal in structure. There is no tricuspid valve stenosis. Trace tricuspid reg urgitation. Unable to assess PA pressure. Pulmonic Valve The pulmonary valve is normal in structure. There is no pulmonic valvular stenosis. Trace pulmonic re gurgitation. Great Vessels The aortic root is normal in size. The ascending aorta is mildly dilated. Aortic arch is normal in ca liber. IVC is normal in size and collapses >50% with inspiration. Pericardium There is no pericardial effusion. 2D Dimensions IVSD d PLAX 0.94 cm F: 0.6-1.0 LVPW d PLAX 0.75 cm F: 0.6 - 1.0 LVID d PLAX 4.88 cm F: 3.8 - 5.2 LVDs 3.25 cm F: 2.2 - 3.5 Ao Root d 2.70 cm F: 2.7 - 3.3 RA Area A4C 11.33 cm2 Ao Asc Diam d 3.60 cm F: 2.3 - 3.1 LV EF Teichholz 60.8 % FS 32.55 % M-Mode TAPSE 2.02 cm (M/F) >1.7 LV Diastology MV E' medial 0.082 (>0.07 m/s) E/A Ratio 0.8 LV E/e MED 10.70 (<14) MV E Vmax 0.88 (0.4-1.3 m/s) MV E' lateral 0.079 (>0.1 m/s) MV A Vmax 1.15 (0.4-1.3 m/s) LV E/e LAT 11.15 (<14) MV E/E' medial 10.70 MV E/E' lateral 11.15 MV (E/E' average) 10.92 Aortic Valve LVOT Vmax 1.30 m/s AoV Area Vmax 2.58 cm2 LVOT Peak Grad 6.8 mmHg LVOT Mean Grad 3.6 mmHg LVOT Diam s 1.95 cm AoV Vmax 1.53 m/s Velocity Ratio 0.85 AoV Peak Grad 9.4 mmHg LVOT SV 95.13 mL AoV Mean Grad 4.9 mmHg AoV Area VTI 2.47 cm2 Mitral Valve MV DT 268 (160-240 msec) MV Vmax TIPS 1.17 m/s MV Mean Grad 2.3 (<2mmHg) MV VTI 0.419 m Pulmonary Valve PV Mean Grad 2.6 mmHg RVOT Peak Gr. 3.21 mmHg RVOT Mean Gr. 1.85 mmHg RVOT VTI 0.180 m RVOT Vmax 0.90 m/s
== END ==
PROVIDERS: PCP Family Medicine; Visit Provider Student in an Organized Health Care Education/Training Program
DX: R01.1 Cardiac murmur, unspecified (principal)
CPT/HCPCS: 93306

== ENCOUNTER → 2023-03-24 10:35 | Outpatient (BNVA) | payer MEDICARE, BC, SELFPAY | PROVIDERS: PCP Family Medicine; Referring Provider Family Medicine; Visit Provider Student in an Organized Health Care Education/Training Program | DX: R05.9 Cough, unspecified (principal); R01.1 Cardiac murmur, unspecified | CPT/HCPCS: 99214 ==

== ENCOUNTER 2023-07-13 11:52 | Outpatient (REF) | payer MEDICARE, BC, SELFPAY ==
[2023-07-13 14:31] LABS: HCT 43.7 % (36.0-46.0); HGB 14.3 g/dL (11.2-15.7); MCH 28.9 pg (27.0-33.0); MCHC 32.7 % (32.0-36.0); MCV 88 fL (80-95); MPV 12.2 fL (8.0-11.0); Platelet Count 207 10^3/uL (130-400); RBC 4.95 10^6/uL (3.93-5.22); RDW 12.6 % (11.7-14.6); RDW-SD 40.7 fL; WBC 6.17 10^3/uL (4.4-10.8)
[2023-07-13 15:05] LABS: ALT 33 U/L (14-59); AST 23 U/L (15-37); Albumin 3.5 g/dL (3.4-5.0); Alkaline Phosphatase 130 U/L (46-116); BUN 20 mg/dL (7-18); Bilirubin, Total 0.9 mg/dL (0.2-1.0); Calcium 9.4 mg/dL (8.5-10.1); Calculated LDL 79 mg/dL (<100); Chloride 106 mmol/L (98-107); Cholesterol 165 mg/dL (<200); Estimated GFR 58.39 (mL/min/1.73m2); Glucose 103 mg/dL (74-106); HDL Cholesterol 62 mg/dL (40-60); Potassium 4.4 mmol/L (3.5-5.1); Sodium 144 mmol/L (136-145); Triglyceride 122 mg/dL (<150)
[2023-07-13 15:22] LABS: Vitamin D 25 Total 41.6 ng/mL (30-100)
[2023-07-13 15:57] LABS: Hemoglobin A1C 5.5 % (<5.7)
== END 2023-07-13 11:53 | disposition home or self-care (01) ==
LOC: NCHCN 11:52
PROVIDERS: PCP Family Medicine; Visit Provider Family Medicine
DX: E78.5 Hyperlipidemia, unspecified (principal); R73.03 Prediabetes; E55.9 Vitamin D deficiency, unspecified
CPT/HCPCS: 80053; 80061; 82306; 85027; 83036

== ENCOUNTER 2023-07-20 21:16 | Outpatient (REF) | payer MEDICARE, BC, SELFPAY | END 2023-07-20 21:17 | disposition home or self-care (01) | LOC: NCHCN 21:16 | PROVIDERS: PCP Family Medicine; Visit Provider Family Medicine | DX: Z87.440 Personal history of urinary (tract) infections (principal); R39.89 Other symptoms and signs involving the genitourinary system | CPT/HCPCS: 87086 ==

== ENCOUNTER 2024-08-07 08:47 | Outpatient (REF) | payer MEDICARE, BC, SELFPAY ==
[2024-08-07 14:40] LABS: HCT 41.5 % (36.0-46.0); HGB 13.5 g/dL (11.2-15.7); MCH 29.8 pg (27.0-33.0); MCHC 32.5 % (32.0-36.0); MCV 92 fL (80-95); MPV 12.3 fL (8.0-11.0); Platelet Count 182 10^3/uL (130-400); RBC 4.53 10^6/uL (3.93-5.22); RDW 12.7 % (11.7-14.6); RDW-SD 42.6 fL; WBC 6.03 10^3/uL (4.4-10.8)
[2024-08-07 15:17] LABS: ALT 26 U/L (14-59); AST 22 U/L (15-37); Albumin 3.6 g/dL (3.4-5.0); Alkaline Phosphatase 147 U/L (46-116); Anion Gap 6.1 mmol/L (3-11); BUN 17 mg/dL (7-18); Bilirubin, Total 0.85 mg/dL (0.2-1.0); CO2 29.9 mmol/L (21.0-32.0); Calcium 9.2 mg/dL (8.5-10.1); Calculated LDL 75 mg/dL (<100); Chloride 109 mmol/L (98-107); Cholesterol 165 mg/dL (<200); Estimated GFR 58.02 (mL/min/1.73m2); Glucose 102 mg/dL (74-106); HDL Cholesterol 72 mg/dL (>or=50); Potassium 4.3 mmol/L (3.5-5.1); Sodium 145 mmol/L (136-145); Total Protein 6.6 g/dL (6.4-8.2); Triglyceride 92 mg/dL (<150); Vitamin D 25 Total 43.3 ng/mL (30-100)
== END 2024-08-07 08:48 | disposition home or self-care (01) ==
LOC: NCHCN 08:47
PROVIDERS: PCP Family Medicine; Visit Provider Family Medicine
DX: I10 Essential (primary) hypertension (principal); E55.9 Vitamin D deficiency, unspecified
CPT/HCPCS: 80053; 80061; 82306; 85027

== ENCOUNTER 2024-08-17 21:18 | Outpatient (REF) | payer MEDICARE, BC, SELFPAY ==
[2024-08-17 22:54] LABS: COMMENT (LAB VIEW ONLY) 107.31 mg/dL
== END 2024-08-17 21:19 | disposition home or self-care (01) ==
LOC: NCHCN 21:18
PROVIDERS: PCP Family Medicine; Visit Provider Family Medicine
DX: I10 Essential (primary) hypertension (principal)
CPT/HCPCS: 82043; 82570